=== PATIENT | male | born 1960 | race Caucasian/White ===

== ENCOUNTER 2020-04-29 08:09 | Day surgery (SDC) | payer OTHER ==
[~2020-04-29 08:09] MED LIST: EPINEPHrine 1 MG/ML 30 ML MDV IRR SCH; Lactated Ringers 1,000 ML IV SCH; Lidocaine 1%/Sod Bicarbonate in NS 8.4% 1 ML Syringe IDERM PRN; Sodium Chloride 0.9% 10 ML Syringe FLUSH PRN
[2020-04-29] MEDS ORDERED: Bupivacaine 0.25% 10 ML SDV ONE (08:24)
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
[2020-04-29] MEDS ORDERED: fentaNYL 250 MCG/5 ML SDV ONE (10:15)
[2020-04-29] MEDS ORDERED: Propofol 200 MG/20 ML SDV ONE (10:15)
[2020-04-29] MEDS ORDERED: Midazolam 1 MG/ML 2 ML SDV ONE (10:15)
[2020-04-29] MEDS ORDERED: Lidocaine 1% 6 ML ONE (10:16)
[2020-04-29] MEDS ORDERED: ceFAZolin 1 GM Vial ONE (10:18)
[2020-04-29] MEDS ORDERED: Ondansetron 4 MG/2 ML SDV ONE (10:38)
[2020-04-29] MEDS ORDERED: Lactated Ringers 1,000 ML ONE (10:50)
[2020-04-29] MEDS ORDERED: fentaNYL 100 MCG/2 ML SDV IVPUSH PRN (11:09)
[2020-04-29] MEDS ORDERED: HYDROmorphone 0.5 MG/0.5 ML Syringe IVPUSH PRN (11:09)
--- NOTE | 2020-04-29 11:31 | PCM.POSTAN ---
POST ANESTHESIA ASSESSMENT - MENTAL STATUS Mental Status: Alert, Oriented - VITAL SIGNS Vital Signs: Last Vital Signs Temp 97.7 F 04/29/20 11:20 Pulse 88 04/29/20 11:20 Resp 12 04/29/20 11:20 BP 141/90 H 04/29/20 11:20 Pulse Ox 96 04/29/20 11:20 - RESPIRATORY Respiratory Status: Respiratory Rate WNL, Airway Patent, O2 Saturation Stable - CARDIOVASCULAR CV Status: Pulse Rate WNL, Blood Pressure Stable - GASTROINTESTINAL GI Status: No Symptoms - PAIN Pain Score: 4 - POST OP HYDRATION Hydration Status: Adequate & Stable
[2020-04-29] MEDS ORDERED: Acetaminophen/HYDROcodone 325-5 MG Tab PO PRN (11:49)
[2020-04-29] MEDS ORDERED: Ketorolac 30 MG/ML SDV IVPUSH ONE (12:00)
--- NOTE | 2020-04-29 12:41 | PCM48HPAN ---
Post Anesthesia Note - EVALUATION WITHIN 48HRS OF ANESTHETIC Vital Signs in Normal Range: Yes Patient Participated in Evaluation: Yes Respiratory Function Stable: Yes Airway Patent: Yes Cardiovascular Function Stable: Yes Hydration Status Stable: Yes Pain Control Satisfactory: Yes Nausea and Vomiting Control Satisfactory: Yes Mental Status Recovered: Yes Vital Signs: Last Vital Signs Temp 98.3 F 04/29/20 12:00 Pulse 88 04/29/20 11:20 Resp 15 04/29/20 12:00 BP 142/81 H 04/29/20 12:00 Pulse Ox 96 04/29/20 12:00 - COMMENTS/OBSERVATIONS Free Text/Narrative:: Pain is under control, preparing for discharge home
--- NOTE | 2020-05-08 10:21 | PCM.OPNOTE ---
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
--- NOTE | 2020-05-08 10:58 | OR ---
DATE OF OPERATION: 04/29/2020 SURGEON: Mason Elliott MD OPERATION PERFORMED: 1. Right knee video arthroscopy. 2. Partial medial meniscectomy. 3. Chondroplasty of medial femoral condyle. 4. Partial synovectomy. 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 POSTOPERATIVE DIAGNOSIS: Right knee medial meniscus tear with chondromalacia and synovitis. ANESTHESIA: General LMA with local. ANESTHESIA PROVIDER: Ellie Goodwin. MODEL ENGINE MECHANIC: Linette Mortensen PA-C. ESTIMATED BLOOD LOSS: 5 mL. COMPLICATIONS: None. CONDITION: Stable. DESCRIPTION OF PROCEDURE: The patient was identified in the preoperative holding area. Proper site was marked and identified by the surgeon. The patient was taken back to the operating theater, where after adequate anesthesia, the patient's left lower extremity was placed in a well leg bran. Right lower extremity had a nonsterile tourniquet applied, it was then placed in a C-clamp bran. Foot of the bed was then lowered. Right lower extremity was then sterilely prepped and draped in the usual sterile fashion. OR time-out was performed. Patient received 2 g of IV Ancef. Right lower extremity was exsanguinated. Tourniquet was insufflated to 250 mmHg. Standard anterior lateral portal incision was made. Scope trocar was introduced. The patient was noted to have grade 2 chondromalacia of the patella. He was noted to have a large plica with severe synovitis in the anterior knee and the medial aspect of the knee. Attention was turned to the medial compartment. Anteromedial portal was created with the use of a spinal needle. 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 At this time, a chondroplasty of medial femoral condyle was undertaken and partial medial meniscectomy was performed of the unstable portion of the posterior horn. This was taken back to a stable rim. The ACL was intact in the notch. Lateral compartment showed grade 1 chondromalacia changes. At this time, a partial synovectomy of the plica as well as severe synovitis was performed in the anterior aspect of the knee. Excess saline was drained from the knee. 3-0 nylon suture was used for closure of the skin. 0.25% Marcaine was injected over the portal incisions. Sterile soft dressing was applied. The patient was sent to PACU in stable condition. JAYSON /[id number]
== END 2020-04-29 13:15 | disposition home or self-care (01) ==
LOC: JD.SDS 08:09
PROVIDERS: ATTEND Orthopaedic Surgery
DX: S83.241A Other tear of medial meniscus, current injury, right knee, initial encounter (principal); M94.261 Chondromalacia, right knee; M65.861 Other synovitis and tenosynovitis, right lower leg; I10 Essential (primary) hypertension; E55.9 Vitamin D deficiency, unspecified; E78.00 Pure hypercholesterolemia, unspecified; Z88.8 Allergy status to other drugs, medicaments and biological substances; Z88.2 Allergy status to sulfonamides; Z88.0 Allergy status to penicillin; Z79.899 Other long term (current) drug therapy; Z98.890 Other specified postprocedural states; Z90.49 Acquired absence of other specified parts of digestive tract
CPT/HCPCS: 29875; 29881; 87641; A9270; J0171; J0690; J1885; J2001; J2250; J2405; J2704; J3010; J3490; J7120; 01400